=== PATIENT | male | born 1975 | race Hispanic/Latino ===

== ENCOUNTER 2020-09-05 12:21 | Emergency (ER) | payer OTHER ==
[~2020-09-05] VITALS: Ht 175.3 cm; Wt 127.0 kg
[2020-09-05] MEDS ORDERED: KETOROLAC TROMETHAMINE 60 MG/2 ML VIAL IM ONE (12:45)
[2020-09-05] MEDS ORDERED: CYCLOBENZAPRINE5 MG PO (14:26)
[2020-09-05] MEDS ORDERED: PREDNISONE20 MG PO (14:26)
== END 2020-09-05 14:33 | disposition home or self-care (01) ==
LOC: FSED 12:45
DX: S29.012A Strain of muscle and tendon of back wall of thorax, initial encounter (principal); M54.2 Cervicalgia; M54.5 Low back pain; V43.53XA Car driver injured in collision with pick-up truck in traffic accident, initial encounter; Y92.488 Other paved roadways as the place of occurrence of the external cause
CPT/HCPCS: 72072; 72100; 72125; 99284; J1885

== ENCOUNTER 2022-07-04 05:32 | Emergency (ER) | payer OTHER ==
[~2022-07-04] VITALS: Ht 175.3 cm; Wt 122.5 kg
[~2022-07-04 05:32] MED LIST: CYCLOBENZAPRINE5 MG PO; PREDNISONE20 MG PO
[2022-07-04] MEDS ORDERED: IBUPROFEN 600 MG TAB PO STA (06:16)
[2022-07-04] MEDS ORDERED: BENZONATATE200 MG PO (06:20)
[2022-07-04] MEDS ORDERED: TAMIFLU75 MG PO (06:21)
== END 2022-07-04 07:05 | disposition home or self-care (01) ==
LOC: FSED 06:04
DX: R50.9 Fever, unspecified (principal); J11.1 Influenza due to unidentified influenza virus with other respiratory manifestations; R05.9 Cough, unspecified
CPT/HCPCS: 87400; 99283